=== PATIENT | female | born 1980 | race Caucasian/White ===

== ENCOUNTER 2018-09-04 15:54 | Emergency (ER) | payer MEDICAID ==
[~2018-09-04] VITALS: Ht 154.9 cm; Wt 68.5 kg
[2018-09-04 16:01] VITALS: BP 109/52
[2018-09-04] MEDS ORDERED: HYDROCODONE/APAP 5/325MG 1 EACH TABLET ONE (16:10)
[2018-09-04] MEDS ORDERED: HYDROCODONE/APAP 5/325MG 1 EACH TABLET PO ONE (16:30)
== END 2018-09-04 16:20 | disposition home or self-care (01) ==
LOC: ER 15:58
DX: L03.115 Cellulitis of right lower limb (principal)
CPT/HCPCS: Z7502